=== PATIENT | male | born 1975 | race Caucasian/White ===

== ENCOUNTER 2023-05-22 11:37 | Emergency (ER) | payer MEDICAID ==
[~2023-05-22] VITALS: Ht 170.2 cm; Wt 83.9 kg
[2023-05-22 12:02] VITALS: BP 143/84; PULSE 66; RESP 18; TEMP 98.4; O2SAT 99
[2023-05-22] MEDS ORDERED: TETRACAINE HCL/PF 0.5% OPTH 4 ML BTL OP ONE (12:10)
[2023-05-22] MEDS ORDERED: FLUORESCEIN OPTH STRIP 1 MG OP ONE (12:10)
[2023-05-22] MEDS ORDERED: TOMOMETER 1 DEV DEV MC ONE (12:26)
[2023-05-22] MEDS ORDERED: IBUP-2213 PO (12:37)
[2023-05-22] MEDS ORDERED: CILOS LEFT EYE (12:37)
== END 2023-05-22 12:51 | disposition home or self-care (01) ==
LOC: MED 11:37
DX: S05.02XA Injury of conjunctiva and corneal abrasion without foreign body, left eye, initial encounter (principal); Z91.040 Latex allergy status; Z79.899 Other long term (current) drug therapy; X58.XXXA Exposure to other specified factors, initial encounter; Y93.89 Activity, other specified; Y92.89 Other specified places as the place of occurrence of the external cause; Y99.8 Other external cause status
CPT/HCPCS: 99283